=== PATIENT | female | born 1995 | race Two or more races ===

== ENCOUNTER → 2018-09-17 | Outpatient (REF) | payer OTHER | LOC: M SFHCLERA 16:45 | PROVIDERS: ATTEND Physician Assistant | DX: J02.9 Acute pharyngitis, unspecified (principal) ==

== ENCOUNTER → 2018-11-24 | Outpatient (CLI) | payer OTHER ==
[~2018-11-24] MED LIST: CONRAY-43 43% 50ML VIAL (Q9960) As Ordered ONE; LIDOCAINE 1% MDV 20ML VIAL As Ordered ONE; TRIAMCINOLONE ACETONIDE SUSP 40 MG/ML VIAL (J3301) As Ordered ONE
--- NOTE | 2018-11-24 18:05 | REP ---
LEFT ILIOPSOAS TENDON SHEATH INJECTION The procedure was performed under the direct supervision of Dr. Ramos. The benefits and risks including but not limited to pain infection bleeding and anaphylaxis were explained to the patient and informed consent was obtained. The left iliopsoas tendon insertion was localized using fluoroscopic guidance. The skin was prepped and draped in a sterile fashion. 1% lidocaine was used as a local anesthetic. Using fluoroscopic guidance a 22-gauge spinal needle was inserted and advanced to the tendon insertion site. 0.5 ml of Conray 43 was injected to verify placement. 10 ml of a solution containing 9 ml of 1% lidocaine and 1 ml of Kenalog 40 mg injected. The needle was then removed. The patient tolerated the procedure well and there were no immediate complications. Less than 6 seconds of fluoroscopy time was utilized for this procedure. Reviewed by ALEJANDRA De Jesus 11/24/2018 04:10 P Electronically Signed by Blas Ramos MD 11/24/2018 05:55 P
== END ==
LOC: M RADPRO 10:31
PROVIDERS: ATTEND Orthopaedic Surgery
DX: M25.552 Pain in left hip (principal)
CPT/HCPCS: 20610; 77002; J3301; Q9960

== ENCOUNTER 2020-02-24 16:29 | Emergency (ER) | payer OTHER ==
[~2020-02-24] VITALS: Ht 165.1 cm; Wt 89.5 kg
[2020-02-24] MEDS ORDERED: TIZA4TAB4 (16:39)
[2020-02-24] MEDS ORDERED: ESCI10TA2 (16:39)
[2020-02-24] MEDS ORDERED: NEXP1IMP SC (16:39)
[2020-02-24 17:29] LABS: BASO % 0.3 % (0.0-1.0); EOS # 0.1 10^3/uL (0.0-0.5); EOS % 1.7 % (0.0-3.0); HEMATOCRIT 45.2 % (36.0-47.0); HEMOGLOBIN 15.1 g/dl (12.0-15.5); LYMPH # 2.1 10^3/uL (1.5-5.0); LYMPH % 29.5 % (24.0-44.0); MEAN CORPUSCULAR HEMOGLOBIN 30.1 pg (27.0-33.0); MEAN CORPUSCULAR HGB CONC 33.4 g/dl (32.0-36.5); MEAN CORPUSCULAR VOLUME 90.2 fl (80.0-96.0); MONO # 0.5 10^3/uL (0.0-0.8); MONO % 7.3 % (0.0-5.0); NEUTROPHILS # 4.3 10^3/uL (1.5-8.5); NEUTROPHILS % 61.1 % (36.0-66.0); PLATELET COUNT, AUTOMATED 182 10^3/uL (150-450); RED BLOOD COUNT 5.01 10^6/uL (4.00-5.40); WHITE BLOOD COUNT 7.1 10^3/uL (4.0-10.0)
[2020-02-24 17:51] LABS: ALT/SGPT 49 U/L (12-78); BILIRUBIN,DIRECT 0.1 MG/DL (0.0-0.2); BILIRUBIN,TOTAL 0.4 MG/DL (0.2-1.0); BLOOD UREA NITROGEN 7 MG/DL (7-18); CALCIUM LEVEL 9.7 MG/DL (8.5-10.1); CARBON DIOXIDE LEVEL 27 MEQ/L (21-32); CHLORIDE LEVEL 108 MEQ/L (98-107); GLOMERULAR FILTRATION RATE > 60.0 (>60); GLUCOSE, FASTING 106 MG/DL (70-100); LIPASE 74 U/L (73-393); SODIUM LEVEL 141 MEQ/L (136-145); TOTAL PROTEIN 7.9 GM/DL (6.4-8.2)
[2020-02-24 18:14] LABS: APPEARANCE, URINE CLEAR (CLEAR); BACTERIA, URINE AUTO NEGATIVE (NEGATIVE); BILIRUBIN, URINE AUTO NEGATIVE (NEGATIVE); BLOOD, URINE BLOOD NEGATIVE (NEGATIVE); COLOR, URINE YELLOW (YELLOW); GLUCOSE, URINE (UA) AUTO NEGATIVE (NEGATIVE); KETONE, URINE AUTO NEGATIVE (NEGATIVE); LEUKOCYTE ESTERASE, URINE AUTO NEGATIVE (NEGATIVE); MUCUS, URINE SMALL (NEGATIVE); NITRITE, URINE AUTO NEGATIVE (NEGATIVE); PROTEIN, URINE AUTO NEGATIVE (NEGATIVE); RBC, URINE AUTO 1 /HPF (0-3); SPECIFIC GRAVITY URINE AUTO 1.014 (1.002-1.035); SQUAMOUS EPITHELIAL CELL UR AU 1 /HPF (0-6); UROBILINOGEN, URINE AUTO 0.2 mg/dL (0.0-2.0); WBC, URINE AUTO 0 /HPF (0-3)
[2020-02-24 18:37] VITALS: BP 134/62
== END 2020-02-24 18:42 | disposition home or self-care (01) ==
LOC: M ED 16:29
DX: R11.0 Nausea (principal); R19.7 Diarrhea, unspecified; R10.9 Unspecified abdominal pain; F33.9 Major depressive disorder, recurrent, unspecified; F41.9 Anxiety disorder, unspecified; Z79.3 Long term (current) use of hormonal contraceptives

== ENCOUNTER 2020-03-18 14:37 | Inpatient (IN) | payer OTHER ==
[~2020-03-18 14:37] MED LIST changes: -CONRAY-43 43% 50ML VIAL (Q9960) As Ordered ONE; +ESCI10TA2; -LIDOCAINE 1% MDV 20ML VIAL As Ordered ONE; +NEXP1IMP SC; +TIZA4TAB4; -TRIAMCINOLONE ACETONIDE SUSP 40 MG/ML VIAL (J3301) As Ordered ONE
[2020-03-19] MEDS ORDERED: ACETAMINOPHEN TAB 650MG DOSE (2X325MG) ONE (04:48)
[2020-03-19] MEDS ORDERED: ACETAMINOPHEN TAB 650MG DOSE (2X325MG) As Ordered ONE (04:48)
[2020-03-19] MEDS ORDERED: ESCITALOPRAM OXALATE 10 MG TAB (LEXAPRO) As Ordered ONE (08:10)
[2020-03-19] MEDS ORDERED: ESCITALOPRAM OXALATE 10 MG TAB (LEXAPRO) ONE (08:10)
[2020-03-19] MEDS ORDERED: hydrOXYzine 25 MG TAB ONE ×2 (14:23→21:21)
[2020-03-19] MEDS ORDERED: hydrOXYzine 25 MG TAB As Ordered ONE (14:43)
[2020-03-19] MEDS ORDERED: traZODone 50 MG TAB ONE (21:21)
[2020-03-20] MEDS ORDERED: ESCITALOPRAM OXALATE 10 MG TAB (LEXAPRO) ONE (08:31)
[2020-03-20] MEDS ORDERED: traZODone 50 MG TAB ONE (22:33)
[2020-03-21] MEDS ORDERED: ACETAMINOPHEN TAB 650MG DOSE (2X325MG) ONE (09:32)
[2020-03-21] MEDS ORDERED: ESCITALOPRAM OXALATE 10 MG TAB (LEXAPRO) ONE (09:32)
--- NOTE | 2020-05-24 08:39 | MHDS ---
PSYCHIATRIC DISCHARGE DATE OF ADMISSION: 03/18/2020 DATE OF DISCHARGE: 03/22/2020 She was admitted to inpatient mental health unit. Primary care provider is Jacquie Hoffmann. DISCHARGE DIAGNOSIS: Unspecified depressive disorder. DISCHARGE MEDICATIONS: Lexapro 10 mg one daily. A 7-day supply was provided to her on paper prescription form. This was also a 4-refill supply. DIET: Regular. ACTIVITY: As tolerated. FOLLOWUP CARE: Patient is going to followup with Dr. Nguyễn on March 28 at 10:40. Her Jacquie appointment was canceled on April 03, and they expedited a sooner appointment on March 28. Patient is discharged to home. CONSULTATIONS: None. BRIEF REASON FOR ADMISSION: Patient is a 24-year-old , furloughed female who was brought to [facility] after taking an overdose of tizanidine. She took 23 tablets, which she counted out. She has a prescription for tizanidine 4 mg for stress fractures that she received 4 years ago, and this is to relieve her pain. She was admitted to psychiatric after there was a belief that she might be discharged from the emergency room, but she was admitted on a 9.39. She was calm and cooperative on admission. She reports that she and her have been fighting due to his infidelities. He has two children with two different mothers, and patient is reporting that she has increased depression and anxiety due to his relationship issues with his children's mothers. She also reports that these mothers have taken her to court for hurting the children, which she vehemently denies. COURSE OF TREATMENT: Patient, again, was admitted to psychiatry on a 9.39. Upon the psychiatric evaluation, she reported remorse and no current suicidal or homicidal planning and intent. She reported future orientation, stating that she has reasons to live. She reports that her best friend, Alex, has a new baby, named Mikki, and that she is helping to take care of this baby. She reports that her cats are a reason for living as well as the possibility of going to [place], where her mother and step-father live. She states that in August she stopped taking Lexapro and restarted it on this hospitalization and is reporting that, although she and her may not be able to reconcile their marriage, she is hoping that she can return home. She states that she has talked to him and feels that at this moment, due to her finances, she is not able to go to her parents at this time. She was concerned [place] [facility], as the unit believed that she was active-duty , and she reported that she is not. 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 Patient was calm and cooperative in the milieu and motivated for discharge today. She is established at [facility], and we have spoken to the patient's , who has no concerns with her returning home. We reinforced with the that no guns or weapons should be in the home. We also recommended that he monitor her medications and to get a lock box. He was in agreement with this, and we also recommended that he only allow her to have 1-2 days' worth of medications. When I talked to the patient about this, she states that her is a trigger for her, and that she does not want him to care for her medications. I reinforced with the patient that she needed several weeks or months of being observed to make her feel comfortable that she can again be trusted and safe to take her medications without fear of overdosing. Patient is denying any depression at this time. She reports no anxiety. Is not observed with any auditory or visual hallucinations, paranoia, psychosis. We reviewed with the patient the medications, the discharge instructions, side effects. She verbalized understanding and reports that she will be compliant with her medication regimen. MENTAL STATUS EXAMINATION: Patient is a 24-year-old , furloughed female. She is well groomed. Hygiene and grooming are good. Her dress is appropriate for the weather. Her eye contact is good. Speech is normal rate, tone, and volume. She has a euthymic mood and euthymic affect. She is reality based, linear, and goal oriented. Not observed and denies any franky, paranoia, psychosis, auditory or visual hallucinations, suicidal or homicidal ideation, planning, or intent. Her cognitive functioning is congruent with her education. Her memory is intact, and her insight and judgment are fair to good. CONDITION AT TIME OF DISCHARGE: Patient is psychiatrically stable for discharge today. She will be followed up with [facility]. [facility]
--- NOTE | 2020-06-07 20:55 | MHDSPDOC ---
[facility] Discharge Summary Discharge Summary DATE OF ADMISSION: Mar 18, 2020 at 16:40 DATE OF DISCHARGE: Mar 22, 2020 at 07:34 Medications Miscellaneous Medications Escitalopram Oxalate (Escitalopram Oxalate) 10 Mg Tablet, (Reported) Etonogestrel (Nexplanon) 68 Mg Implant, 68 MG SC, (Reported) Tizanidine HCl (Tizanidine HCl) 4 Mg Tablet, (Reported) Allergies Coded Allergies: No Known Allergies (Verified Allergy, Unknown, 02/24/20) YESENIA GROSS DO Jun 07, 2020 20:55
== END 2020-03-22 07:34 | disposition home or self-care (01) | DRG 881 ==
LOC: M ED 14:37 → M PSY 16:40
PROVIDERS: ADMIT Psychiatry & Neurology Addiction Medicine; ATTEND Psychiatry & Neurology Addiction Medicine
DX: F32.9 Major depressive disorder, single episode, unspecified (principal)